=== PATIENT | female | born 1965 | race American Indian/Alaskan Native ===

== ENCOUNTER 2017-06-03 20:20 | Emergency (ER) | payer OTHER ==
--- NOTE | 2017-06-03 21:08 | Emergency Department Report ---
ED Psych HPI - General Chief Complaint: Psych Stated Complaint: MENTAL HEALTH EVALUATION Time Seen by Provider: 06/03/17 20:58 Source: police, EMS Mode of arrival: Stretcher - History of Present Illness Initial Comments: Patient is 51 years old female history of hypertension no previous history of psychiatric problem brought to the ER via EMS for an evaluation of acute agitation and aggressiveness. EMS report patient is throwing stuff in our house breaking things, hospitalized initially with the patient that he left after that. Report from nurses stated that they are questioning possible substance abuse. No history of fever or headache recently. No neck stiffness. MD Complaint: altered mental status -: Sudden Associated Psychiatric Symptoms: visual hallucinations, delusions History of same: No - Related Data Allergies Allergy/AdvReac Type Severity Reaction Status Date / Time No Known Allergies Allergy Unverified 06/03/17 20:48 ED Review of Systems ROS: Stated complaint: MENTAL HEALTH EVALUATION Other details as noted in HPI Comment: All other systems reviewed and negative Constitutional: denies: chills, fever Respiratory: denies: cough, orthopnea, shortness of breath, SOB with exertion Cardiovascular: palpitations. denies: chest pain Gastrointestinal: denies: abdominal pain, nausea, vomiting, diarrhea, constipation Genitourinary: denies: urgency, dysuria, frequency, hematuria Skin: denies: rash Neurological: denies: headache, weakness, numbness, paresthesias, confusion Psychiatric: visual hallucinations ED Past Medical Hx - Past Medical History Previous Medical History?: Yes Hx Hypertension: Yes (?) - Surgical History Past Surgical History?: No - Social History Smoking Status: Unknown if ever smoked Substance Use Type: None ED Physical Exam - General Limitations: No Limitations General appearance: alert, other (patient is very agitated.) - Head Head exam: Present: atraumatic, normocephalic, normal inspection - Eye Eye exam: Present: normal appearance, PERRL Pupils: Present: miosis, other - ENT ENT exam: Present: normal exam, normal orophraynx, mucous membranes moist - Neck Neck exam: Present: normal inspection, full ROM. Absent: tenderness, meningismus, lymphadenopathy, thyromegaly - Respiratory Respiratory exam: Present: normal lung sounds bilaterally. Absent: respiratory distress, wheezes, rales, rhonchi, stridor, chest wall tenderness, accessory muscle use, decreased breath sounds, prolonged expiratory - Cardiovascular Cardiovascular Exam: Present: tachycardia. Absent: systolic murmur, diastolic murmur, rubs, gallop - GI/Abdominal GI/Abdominal exam: Present: soft, normal bowel sounds. Absent: tenderness, guarding, rebound, rigid, organomegaly, mass, bruit, pulsatile mass, hernia - Extremities Exam Extremities exam: Present: normal inspection, full ROM, normal capillary refill. Absent: tenderness, pedal edema, joint swelling, calf tenderness - Back Exam Back exam: Present: full ROM. Absent: CVA tenderness (R), CVA tenderness (L), muscle spasm, paraspinal tenderness, vertebral tenderness - Neurological Exam Neurological exam: Present: alert, altered, CN II-XII intact, normal gait, reflexes normal. Absent: motor sensory deficit - Psychiatric Psychiatric exam: Present: agitated, manic - Skin Skin exam: Present: warm, intact, normal color ED Course Vital Signs 06/03/17 20:42 Temperature 98.2 F Pulse Rate 125 H Respiratory 24 Rate Blood Pressure 144/81 Blood Pressure 144/81 [Left] O2 Sat by Pulse 98 Oximetry Critical care attestation.: If time is entered above; I have spent that time in minutes in the direct care of this critically ill patient, excluding procedure time. ED Disposition Clinical Impression: Acute psychosis Disposition: DC/TX-65 PSY HOSP/PSY UNIT Is pt being admited?: No Condition: Stable Referrals: MOSES SAAVEDRA MD [Primary Care Provider] - 3-5 Days
[2017-06-03 21:17] LABS: Amphetamine Screen,Urine PRESUMPTIVE NEGATIVE; Benzodiazepines Screen,Urine PRESUMPTIVE NEGATIVE; Cocaine Screen,Urine PRESUMPTIVE NEGATIVE; Methadone Screen,Urine PRESUMPTIVE NEGATIVE; Opiate Screen,Urine PRESUMPTIVE NEGATIVE
[2017-06-03 21:30] LABS: Cannabinoid Screen,Urine PRESUMPTIVE POSITIVE
[2017-06-03 21:34] LABS: Bacteria,Urine 1+ /HPF (Negative); Bilirubin,Urine NEG (Negative); Blood,Urine NEG (Negative); Calcium Oxalate Crystals,Urine 1+; Color,Urine Yellow (Yellow); Hyaline Casts,Urine 32 /LPF; Mucus,Urine FEW /HPF; Nitrite,Urine NEG (Negative); Urobilinogen,Urine < 2.0 mg/dL (<2.0)
[2017-06-03 21:37] LABS: Basophils # (Auto) 0.1 K/mm3 (0.0-0.1); Basophils % (Auto) 0.6 % (0.0-1.8); Eosinophils % (Auto) 0.2 % (0.0-4.3); Hematocrit 43.9 % (30.3-42.9); Hemoglobin 15.1 gm/dl (10.1-14.3); Lymphocytes # (Auto) 3.1 K/mm3 (1.2-5.4); Lymphocytes % (Auto) 31.7 % (13.4-35.0); Mean Corpuscular HGB Conc 35 % (30-34); Mean Corpuscular Hemoglobin 36 pg (28-32); Mean Corpuscular Volume 103 fl (79-97); Monocytes # (Auto) 0.7 K/mm3 (0.0-0.8); Monocytes % (Auto) 7.6 % (0.0-7.3); Platelet Count 253 K/mm3 (140-440); Red Blood Count 4.25 M/mm3 (3.65-5.03)
[2017-06-03 21:43] LABS: Calcium 9.1 mg/dL (8.4-10.2)
[2017-06-04] MEDS ORDERED: GEODON IM ONE (01:34)
--- NOTE | 2017-06-05 12:44 | Consultation ---
History of Present Illness - Reason for Consult Consult date: 06/05/17 Reason for consult: Mental Health Evaluation Requesting physician: DAMON HERNANDEZ - Chief Complaint Chief complaint: "I don't know what happened to me" - History of Present Psychiatric Illness Patient is 51 years old female history of hypertension with no previous history of psychiatric problem brought to the ER via EMS for an evaluation of acute agitation and aggressiveness. Today the patient is calm and cooperative during the assessment. She stated that she don't remember much about what happened at her home prior to her admission to the hospital. She was asked about having a mental health dx, she stated, "I saw a psychiatrist before, but I don't remember the conversation." She admitted to smoking marijuana "often." She denies any manic episodes, but admitted to erratic sleep "lately." She denies SI /HI's and AVH's. She denies a poor appetite and excessive alcohol consumption ( etoh). Medications and Allergies Allergies Allergy/AdvReac Type Severity Reaction Status Date / Time No Known Allergies Allergy Unverified 06/03/17 20:48 Home Medications Medication Instructions Recorded Confirmed Last Taken Type No Known Home Medications [No 06/04/17 06/04/17 Unknown History Reported Home Medications] Past psychiatric history - Past Medical History Past Medical History: No medical history Past Surgical History: No surgical history - past Psychiatric treatment and history psychiatric treatment history: She stated see a psychiatrist once (outpatient). Denies a fam psy hx. Mental Status Exam - Vital signs Last Vital Signs Temp 98.6 F 06/04/17 19:05 Pulse 95 H 06/04/17 19:05 Resp 18 06/05/17 11:17 BP 129/80 06/04/17 19:05 Pulse Ox 99 06/05/17 11:17 - Exam Narrative exam: MSE: Appearance: calm, cooperative Behavior: regular eye contact Speech: regular rate and tone Mood: "okay" Affect: congruent to mood Thought Process: circumstantial Thought Content: denies SI/HI's and AVH's Motor Activity: lying in bed Cognition: A/O x3 Insight: variable Judgment: variable Results Result Diagrams: 06/03/17 21:01 06/03/17 21:01 All other labs normal. Assessment and Plan Assessment and plan: Impression: Unspecified Psychosis on admission. Substance Use DO (marijuana). Today the patient is calm and cooperative during the assessment. DDx: R/O Substance Induced psychosis Recommendation/Plan: Continue 1013 and gather collateral information to determine treatment and dispo. Start Trazodone 50 mg HS PRN for sleep consolidation. Discussed possible suicidality/medication induced kat reference Trazodone with patient.
[2017-06-05] MEDS ORDERED: DESYREL PO PRN (12:56)
[2017-06-05 16:17] LABS: Alanine Aminotransferase 14 units/L (7-56); Lipase 10 units/L (13-60)
--- NOTE | 2017-06-06 15:08 | Progress Note ---
Subjective - Reason for Consult Consult date: 06/06/17 Reason for consult: Psychiatry Follow-up - Chief Complaint Chief complaint: "Bronson" Patient is 51 years old female history of hypertension with no previous history of psychiatric problem brought to the ER via EMS for an evaluation of acute agitation and aggressiveness. Today the patient is calm and cooperative during the assessment. She is more lucid today then yesterday when asked questions. She stated that she got a "lot of rest" last night. She denies SI/HI's and AVH' s. She denies any side effects of her medication. Mental Status Exam - Vital signs Last Vital Signs Temp 98.5 F 06/06/17 10:00 Pulse 82 06/06/17 10:00 Resp 18 06/06/17 12:29 BP 111/77 06/06/17 10:00 Pulse Ox 96 06/06/17 12:29 - Exam Narrative exam: MSE: Appearance: calm, cooperative Behavior: regular eye contact Speech: regular rate and tone Mood: "okay" Affect: congruent to mood Thought Process: logical Thought Content: denies SI/HI's and AVH's Motor Activity: lying in bed Cognition: A/O x3 Insight: fair Judgment: fair Assessment and Plan Impression: Unspecified Psychosis on admission. Substance Use DO (marijuana). Today the patient is calm and cooperative during the assessment. DDx: R/O Substance Induced psychosis Recommendation/Plan: Evaluate 1013 in 24 hours to determine proper dispo. Continue Depakote 1000 mg PO HS for mood and Trazodone 50 mg PO HS PRN for sleep consolidation. Discussed possible suicidality/medication induced kat reference Trazodone with patient. Discussed with patient the importance to have her Depakote level monitored one discharged.
--- NOTE | 2017-06-07 18:19 | Progress Note ---
Subjective - Reason for Consult Consult date: 06/07/17 Reason for consult: psychiatric follow-up Requesting physician: DAMON HERNANDEZ - Chief Complaint Chief complaint: "I am fine". Patient is a 51-year-old female, with history of hypertension, and with no previous psychiatric history was brought to the emergency room, for evaluation of acute agitation and aggressiveness. Today the patient did appear more organized in her thought processes was linear. Patient stated that her mood has been "good". Review of her records show the patient was not sleeping for about 2 days, and she did state that her "life was stressful". She might have had a manic episode, or a substance-induced mood episode, since she was positive for THC. Patient however appears to have cleared up and was able to participate appropriately in a conversation. She denied any current suicidal or homicidal ideations and denied any auditory or visual hallucinations. Mental Status Exam - Vital signs Last Vital Signs Temp 98.5 F 06/07/17 09:02 Pulse 80 06/07/17 09:02 Resp 16 06/07/17 09:02 BP 148/85 06/07/17 09:02 Pulse Ox 99 06/07/17 09:02 - Exam Orientation: time, place, person Affect: anxious Mood: congruent with affect Thought content: other (denies suicidal or homicidal ideations or any auditory and visual hallucinations) Thought Process: Intact Perceptions: none Speech: normal rate and pattern Concentration: focused Motor activity: normal Level of consciousness: alert Memory: Recent Impaired Sleep Symptoms: Difficulty Falling Asleep Appetite: increased Interaction: defensive Assessment and Plan Impression: Unspecified mood disorder versus substance-induced psychosis. Plan: Patient's mood appears to be stable at this time. Hence her 1013 can be rescinded and then she can be discharged to go home. Patient is strongly recommended to follow-up in our outpatient clinic, and also be compliant with her medications including Depakote ER 1000 mg at bedtime for mood stabilization and trazodone 50 mg by mouth daily at bedtime when necessary for insomnia. Patient is strongly encouraged to abstain from using cannabis or any other drugs and alcohol.
--- NOTE | 2017-06-09 10:54 | Progress Note ---
Subjective - Reason for Consult Consult date: 06/09/17 Reason for consult: Psychiatry Follow-up - Chief Complaint Chief complaint: "Can I leave today" Patient is a 51-year-old female, with history of hypertension, and with no previous psychiatric history was brought to the emergency room, for evaluation of acute agitation and aggressiveness. Today the patient is calm and cooperative during the assessment. She stated that her priority is staying "mentally stable" once discharged. She stated that she will follow up with [facility] for outpatient psy services. She denies SI/HI's and AVH's. She denies any side effects of her medications. Mental Status Exam - Vital signs Last Vital Signs Temp 98.8 F 06/08/17 20:35 Pulse 78 06/09/17 04:28 Resp 18 06/09/17 04:28 BP 134/82 06/09/17 04:28 Pulse Ox 97 06/09/17 04:28 - Exam Narrative exam: MSE: Appearance: calm, cooperative Behavior: regular eye contact Speech: regular rate and tone Mood: "okay" Affect: congruent to mood Thought Process: logical/linear Thought Content: denies SI/HI's and AVH's Motor Activity: lying in bed Cognition: A/O x3 Insight: appropriate Judgment: appropriate Assessment and Plan Impression: Unspecified Psychosis on admission. Cannabis Use DO. Today the patient is calm and cooperative during the assessment. VA 63.9. DDx: Bipolar DO, R/O Substance Induced psychosis Recommendation/Plan: Rescind 1013. Continue Depakote 1000 mg PO HS for mood and Trazodone 50 mg PO HS PRN for sleep consolidation. Discussed possible suicidality/medication induced kat reference Trazodone with patient. The patient given outpatient psy service for [facility]. Discussed with patient the importance to have her Depakote level monitored and the medication managed at [facility], she agreed.
[2017-06-09 12:01] VITALS: BP 117/74
== END 2017-06-09 12:43 | disposition home or self-care (01) ==
LOC: EEVIPCON 20:20 → ED 20:20
DX: F23 Brief psychotic disorder (principal); I10 Essential (primary) hypertension; Z79.899 Other long term (current) drug therapy
CPT/HCPCS: 36415; 80048; 80164; 80307; 81001; 82150; 83690; 84075; 84450; 84460; 84703; 85025; 93005; 93010; 96372; 99284; G0480; J3486; 80320

== ENCOUNTER 2018-11-26 07:53 | Emergency (ER) | payer OTHER ==
[2018-11-26] MEDS ORDERED: GEODON IM ONE (08:02)
[2018-11-26] MEDS ORDERED: ATIVAN IM ONE (08:03)
[2018-11-26] MEDS ORDERED: WATER FOR INJ Sterile (PF) 10 ML ONE (08:10)
--- NOTE | 2018-11-26 08:13 | Emergency Department Report ---
ED Psych HPI - General Chief Complaint: Psych Stated Complaint: BIPOLAR/MH Time Seen by Provider: 11/26/18 08:02 Source: police Mode of arrival: Ambulatory Limitations: Altered Mental Status - History of Present Illness Initial Comments: 53-year-old female with a past medical history of bipolar disorder presents to the hospital ordered police escort with acute psychosis and combative behavior. Has been notified EMS. Patient was destroying property in her home and was difficult to control. We awaiting has been arrival to the ED for further information. Patient is acutely psychotic to make incomprehensible sounds. She was placed in seclusion room still in handcuffs and attempted to lift a bottle off the floor and swallow it. - Related Data Previous Rx's Medication Instructions Recorded Last Taken Type Divalproex Sodium [Depakote] 1,000 mg PO QHS #28 tablet. 06/09/17 Unknown Rx Allergies Allergy/AdvReac Type Severity Reaction Status Date / Time No Known Allergies Allergy Unverified 06/03/17 20:48 ED Review of Systems ROS: Stated complaint: BIPOLAR/MH Other details as noted in HPI Comment: Unobtainable due to pts medical conditions ED Past Medical Hx - Past Medical History Hx Hypertension: Yes (?) Hx Psychiatric Treatment: Yes (bipolar disorder) - Social History Smoking Status: Unknown if ever smoked Substance Use Type: None - Medications Home Medications: Home Medications Medication Instructions Recorded Confirmed Last Taken Type Divalproex Sodium [Depakote] 1,000 mg PO QHS #28 tablet. 06/09/17 11/26/18 Unknown Rx ED Physical Exam - General Limitations: Altered Mental Status - Other Other exam information: General: Agitated Head exam: Atraumatic, normocephalic Eyes exam: Normal appearance ENT: Moist mucous membrane Neck exam: Normal inspection, full range of motion, no meningismus nontender Respiratory exam: Clear to auscultation bilateral, no wheezes, rales, crackles Cardiovascular: Tachycardic Abdomen: Soft, nondistended, and nontender, with normal bowel sounds, no rebound, or guarding Extremity: Full range of motion normal inspection no deformity Back: Normal Inspection, full range of motion, no tenderness Neurologic: Alert, grossly intact sensation with 5/5 upper and lower extremity strength. The gait. Psychiatric: Acutely psychotic, agitated Skin: Upper torso is wet from diaphoresis versus water exposure prior to arrival. Patient was found in the bathroom prior to transport. She expressed to police justice that she is going to menopausal ED Course Vital Signs 11/26/18 11/26/18 11/26/18 10:35 12:05 15:24 Temperature 96.6 F L 98.3 F Pulse Rate 101 H 102 H Respiratory 16 18 16 Rate Blood Pressure 143/80 125/82 [Left] O2 Sat by Pulse 96 95 Oximetry 11/26/18 11/26/18 11/27/18 19:00 20:00 01:00 Temperature 98.6 F 98.7 F Pulse Rate 111 H 85 Respiratory 18 18 18 Rate Blood Pressure 125/78 120/80 [Left] O2 Sat by Pulse 95 95 98 Oximetry 11/27/18 11/27/18 11/27/18 07:00 14:32 19:30 Temperature 98.4 F 98.4 F 98.7 F Pulse Rate 106 H 99 H 89 Respiratory 18 18 Rate Blood Pressure 107/81 126/78 121/78 [Left] O2 Sat by Pulse 96 96 97 Oximetry 11/28/18 11/28/18 01:40 09:15 Temperature 98.6 F 98.1 F Pulse Rate 84 85 Respiratory 20 16 Rate Blood Pressure 142/90 120/74 [Left] O2 Sat by Pulse 97 98 Oximetry - Reevaluation(s) Reevaluation #1: 11/26/18 15:20 pt required geodon and and ativan upon arrival due to uncontrollable behavior. Urine collection is still pending at this point Mental health evaluation requested and patient is currently on a 1013 ED Medical Decision Making - Lab Data Result diagrams: 11/26/18 10:41 11/26/18 10:41 Lab Results 11/26/18 11/26/18 11/26/18 Range/Units 08:10 10:41 10:41 WBC 7.1 (4.5-11.0) K/mm3 RBC 4.38 (3.65-5.03) M/mm3 Hgb 16.2 H (10.1-14.3) gm/dl Hct 45.4 H (30.3-42.9) % MCV 104 H (79-97) fl MCH 37 H (28-32) pg MCHC 36 H (30-34) % RDW 14.8 (13.2-15.2) % Plt Count 222 (140-440) K/mm3 Lymph % (Auto) 23.4 (13.4-35.0) % [place] % (Auto) 5.4 (0.0-7.3) % Eos % (Auto) 0.6 (0.0-4.3) % Baso % (Auto) 1.0 (0.0-1.8) % Lymph # 1.7 (1.2-5.4) K/mm3 [place] # 0.4 (0.0-0.8) K/mm3 Eos # 0.0 (0.0-0.4) K/mm3 Baso # 0.1 (0.0-0.1) K/mm3 Seg Neutrophils % 69.6 (40.0-70.0) % Seg Neutrophils # 4.9 (1.8-7.7) K/mm3 Sodium 141 (137-145) mmol/L Potassium 4.3 (3.6-5.0) mmol/L Chloride 105.5 (98-107) mmol/L Carbon Dioxide 21 L (22-30) mmol/L Anion Gap 19 mmol/L BUN 10 (7-17) mg/dL Creatinine 1.1 (0.7-1.2) mg/dL Estimated GFR > 60 ml/min BUN/Creatinine Ratio 9 % Glucose 93 (65-100) mg/dL POC Glucose 123 H (70-105) Calcium 9.7 (8.4-10.2) mg/dL AST (5-40) units/L ALT (7-56) units/L Alkaline Phosphatase (35-129) units/L Amylase (27-131) units/L Lipase (13-60) units/L HCG, Qual (Negative) Urine Color (Yellow) Urine Turbidity (Clear) Urine pH (5.0-7.0) Ur Specific [place] (1.003-1.030) Urine Protein (Negative) mg/dL Urine Glucose (UA) (Negative) mg/dL Urine Ketones (Negative) mg/dL Urine Blood (Negative) Urine Nitrite (Negative) Urine Bilirubin (Negative) Urine Urobilinogen (<2.0) mg/dL Ur Leukocyte Esterase (Negative) Urine WBC (Auto) (0.0-6.0) /HPF Urine RBC (Auto) (0.0-6.0) /HPF U Epithel Cells (Auto) (0-13.0) /HPF Urine Mucus /HPF Salicylates (2.8-20.0) mg/dL Urine Opiates Screen Urine Methadone Screen Acetaminophen (10.0-30.0) ug/mL Ur Barbiturates Screen Valproic Acid (50-100) ug/mL Ur Phencyclidine Scrn Ur Amphetamines Screen U Benzodiazepines Scrn Urine Cocaine Screen U Marijuana (THC) Screen Drugs of Abuse Note Plasma/Serum Alcohol (0-0.07) % 11/26/18 11/26/18 11/26/18 Range/Units 10:41 10:41 10:41 WBC (4.5-11.0) K/mm3 RBC (3.65-5.03) M/mm3 Hgb (10.1-14.3) gm/dl Hct (30.3-42.9) % MCV (79-97) fl MCH (28-32) pg MCHC (30-34) % RDW (13.2-15.2) % Plt Count (140-440) K/mm3 Lymph % (Auto) (13.4-35.0) % [place] % (Auto) (0.0-7.3) % Eos % (Auto) (0.0-4.3) % Baso % (Auto) (0.0-1.8) % Lymph # (1.2-5.4) K/mm3 [place] # (0.0-0.8) K/mm3 Eos # (0.0-0.4) K/mm3 Baso # (0.0-0.1) K/mm3 Seg Neutrophils % (40.0-70.0) % Seg Neutrophils # (1.8-7.7) K/mm3 Sodium (137-145) mmol/L Potassium (3.6-5.0) mmol/L Chloride (98-107) mmol/L Carbon Dioxide (22-30) mmol/L Anion Gap mmol/L BUN (7-17) mg/dL Creatinine (0.7-1.2) mg/dL Estimated GFR ml/min BUN/Creatinine Ratio % Glucose (65-100) mg/dL POC Glucose (70-105) Calcium (8.4-10.2) mg/dL AST (5-40) units/L ALT (7-56) units/L Alkaline Phosphatase (35-129) units/L Amylase (27-131) units/L Lipase (13-60) units/L HCG, Qual (Negative) Urine Color (Yellow) Urine Turbidity (Clear) Urine pH (5.0-7.0) Ur Specific [place] (1.003-1.030) Urine Protein (Negative) mg/dL Urine Glucose (UA) (Negative) mg/dL Urine Ketones (Negative) mg/dL Urine Blood (Negative) Urine Nitrite (Negative) Urine Bilirubin (Negative) Urine Urobilinogen (<2.0) mg/dL Ur Leukocyte Esterase (Negative) Urine WBC (Auto) (0.0-6.0) /HPF Urine RBC (Auto) (0.0-6.0) /HPF U Epithel Cells (Auto) (0-13.0) /HPF Urine Mucus /HPF Salicylates < 0.3 L (2.8-20.0) mg/dL Urine Opiates Screen Urine Methadone Screen Acetaminophen < 5.0 L (10.0-30.0) ug/mL Ur Barbiturates Screen Valproic Acid (50-100) ug/mL Ur Phencyclidine Scrn Ur Amphetamines Screen U Benzodiazepines Scrn Urine Cocaine Screen U Marijuana (THC) Screen Drugs of Abuse Note Plasma/Serum Alcohol < 0.01 (0-0.07) % 11/26/18 11/26/18 11/26/18 Range/Units 10:41 10:41 19:05 WBC (4.5-11.0) K/mm3 RBC (3.65-5.03) M/mm3 Hgb (10.1-14.3) gm/dl Hct (30.3-42.9) % MCV (79-97) fl MCH (28-32) pg MCHC (30-34) % RDW (13.2-15.2) % Plt Count (140-440) K/mm3 Lymph % (Auto) (13.4-35.0) % [place] % (Auto) (0.0-7.3) % Eos % (Auto) (0.0-4.3) % Baso % (Auto) (0.0-1.8) % Lymph # (1.2-5.4) K/mm3 [place] # (0.0-0.8) K/mm3 Eos # (0.0-0.4) K/mm3 Baso # (0.0-0.1) K/mm3 Seg Neutrophils % (40.0-70.0) % Seg Neutrophils # (1.8-7.7) K/mm3 Sodium (137-145) mmol/L Potassium (3.6-5.0) mmol/L Chloride (98-107) mmol/L Carbon Dioxide (22-30) mmol/L Anion Gap mmol/L BUN (7-17) mg/dL Creatinine (0.7-1.2) mg/dL Estimated GFR ml/min BUN/Creatinine Ratio % Glucose (65-100) mg/dL POC Glucose (70-105) Calcium (8.4-10.2) mg/dL AST 30 (5-40) units/L ALT 19 (7-56) units/L Alkaline Phosphatase 73 (35-129) units/L Amylase 80 (27-131) units/L Lipase 6 L (13-60) units/L HCG, Qual Negative (Negative) Urine Color Yellow (Yellow) Urine Turbidity Slightly-cloudy (Clear) Urine pH 5.0 (5.0-7.0) Ur Specific [place] 1.016 (1.003-1.030) Urine Protein 30 mg/dl (Negative) mg/dL Urine Glucose (UA) Neg (Negative) mg/dL Urine Ketones Tr (Negative) mg/dL Urine Blood Neg (Negative) Urine Nitrite Neg (Negative) Urine Bilirubin Neg (Negative) Urine Urobilinogen < 2.0 (<2.0) mg/dL Ur Leukocyte Esterase Neg (Negative) Urine WBC (Auto) < 1.0 (0.0-6.0) /HPF Urine RBC (Auto) 2.0 (0.0-6.0) /HPF U Epithel Cells (Auto) 2.0 (0-13.0) /HPF Urine Mucus Few /HPF Salicylates (2.8-20.0) mg/dL Urine Opiates Screen Urine Methadone Screen Acetaminophen (10.0-30.0) ug/mL Ur Barbiturates Screen Valproic Acid (50-100) ug/mL Ur Phencyclidine Scrn Ur Amphetamines Screen U Benzodiazepines Scrn Urine Cocaine Screen U Marijuana (THC) Screen Drugs of Abuse Note Plasma/Serum Alcohol (0-0.07) % 11/26/18 11/26/18 Range/Units 19:05 Unknown WBC (4.5-11.0) K/mm3 RBC (3.65-5.03) M/mm3 Hgb (10.1-14.3) gm/dl Hct (30.3-42.9) % MCV (79-97) fl MCH (28-32) pg MCHC (30-34) % RDW (13.2-15.2) % Plt Count (140-440) K/mm3 Lymph % (Auto) (13.4-35.0) % [place] % (Auto) (0.0-7.3) % Eos % (Auto) (0.0-4.3) % Baso % (Auto) (0.0-1.8) % Lymph # (1.2-5.4) K/mm3 [place] # (0.0-0.8) K/mm3 Eos # (0.0-0.4) K/mm3 Baso # (0.0-0.1) K/mm3 Seg Neutrophils % (40.0-70.0) % Seg Neutrophils # (1.8-7.7) K/mm3 Sodium (137-145) mmol/L Potassium (3.6-5.0) mmol/L Chloride (98-107) mmol/L Carbon Dioxide (22-30) mmol/L Anion Gap mmol/L BUN (7-17) mg/dL Creatinine (0.7-1.2) mg/dL Estimated GFR ml/min BUN/Creatinine Ratio % Glucose (65-100) mg/dL POC Glucose (70-105) Calcium (8.4-10.2) mg/dL AST (5-40) units/L ALT (7-56) units/L Alkaline Phosphatase (35-129) units/L Amylase (27-131) units/L Lipase (13-60) units/L HCG, Qual (Negative) Urine Color (Yellow) Urine Turbidity (Clear) Urine pH (5.0-7.0) Ur Specific [place] (1.003-1.030) Urine Protein (Negative) mg/dL Urine Glucose (UA) (Negative) mg/dL Urine Ketones (Negative) mg/dL Urine Blood (Negative) Urine Nitrite (Negative) Urine Bilirubin (Negative) Urine Urobilinogen (<2.0) mg/dL Ur Leukocyte Esterase (Negative) Urine WBC (Auto) (0.0-6.0) /HPF Urine RBC (Auto) (0.0-6.0) /HPF U Epithel Cells (Auto) (0-13.0) /HPF Urine Mucus /HPF Salicylates (2.8-20.0) mg/dL Urine Opiates Screen Presumptive negative Urine Methadone Screen Presumptive negative Acetaminophen (10.0-30.0) ug/mL Ur Barbiturates Screen Presumptive negative Valproic Acid < 2.8 L (50-100) ug/mL Ur Phencyclidine Scrn Presumptive negative Ur Amphetamines Screen Presumptive negative U Benzodiazepines Scrn Presumptive negative Urine Cocaine Screen Presumptive negative U Marijuana (THC) Screen Presumptive negative Drugs of Abuse Note Disclamer Plasma/Serum Alcohol (0-0.07) % - Medical Decision Making medically cleared for psych admission - Differential Diagnosis bipolar, psychosis, drug abuse, noncompliance Critical Care Time: No Critical care attestation.: If time is entered above; I have spent that time in minutes in the direct care of this critically ill patient, excluding procedure time. ED Disposition Clinical Impression: Acute psychosis, Combative behavior, Bipolar disorder, Medical clearance for psychiatric admission Disposition: DC/TX-65 PSY HOSP/PSY UNIT Is pt being admited?: No Condition: Stable Time of Disposition: 16:00
[2018-11-26 10:54] LABS: Basophils # (Auto) 0.1 K/mm3 (0.0-0.1); Eosinophils % (Auto) 0.6 % (0.0-4.3); Lymphocytes # (Auto) 1.7 K/mm3 (1.2-5.4); Lymphocytes % (Auto) 23.4 % (13.4-35.0); Mean Corpuscular HGB Conc 36 % (30-34); Mean Corpuscular Volume 104 fl (79-97); Monocytes # (Auto) 0.4 K/mm3 (0.0-0.8); Monocytes % (Auto) 5.4 % (0.0-7.3); Platelet Count 222 K/mm3 (140-440); Red Blood Count 4.38 M/mm3 (3.65-5.03); Red Cell Distribution Width 14.8 % (13.2-15.2)
[2018-11-26 11:11] LABS: Hematocrit 45.4 % (30.3-42.9); Hemoglobin 16.2 gm/dl (10.1-14.3)
[2018-11-26 11:26] LABS: BUN/Creatinine Ratio 9; Blood Urea Nitrogen 10 mg/dL (7-17); Calcium 9.7 mg/dL (8.4-10.2); Hemolysis Index 41
--- NOTE | 2018-11-26 12:19 | Consultation ---
History of Present Illness - Reason for Consult Consult date: 11/26/18 Reason for consult: Mental Health Evaluation Requesting physician: ZOE COX - Chief Complaint Chief complaint: "I know why I'm here" - History of Present Psychiatric Illness 53 y.o. AA female who presented to the ER for bizarre behavior. This patient is known to me. Today the patient was agitated during the assessment. She had to be interviewed in the seclusion room. She could not answer any questions logically without being redirected. Overall, the patient a poor historian at this time. No gestures of SI/HI's. Medications and Allergies Allergies Allergy/AdvReac Type Severity Reaction Status Date / Time No Known Allergies Allergy Unverified 06/03/17 20:48 Home Medications Medication Instructions Recorded Confirmed Last Taken Type Divalproex Sodium [Depakote] 1,000 mg PO QHS #28 tablet. 06/09/17 11/26/18 Unknown Rx Past psychiatric history - Past Medical History Past Medical History: other (unable to obtain) Past Surgical History: Other (unable to obtain ) - past Psychiatric treatment and history psychiatric treatment history: Hx of Mood DO. Unable to to obtain a fam psy hx. - Social History Social history: lives with family Mental Status Exam - Vital signs Last Vital Signs Temp 96.6 F L 11/26/18 10:35 Pulse 101 H 11/26/18 10:35 Resp 16 11/26/18 10:35 BP 143/80 11/26/18 10:35 Pulse Ox - Exam Narrative exam: MSE: Appearance: disheveled Behavior: regular eye contact Speech: regular rate and tone Mood: labile Affect: congruent to mood Thought Process: disorganized, loose associations Thought Content: no gestures of SI/HI's Motor Activity: lying in bed Cognition: alert Insight: poor Judgment: poor Results Result Diagrams: 11/26/18 10:41 11/26/18 10:41 Abnormal lab results 11/26/18 11/26/18 11/26/18 Range/Units 08:10 10:41 10:41 Hgb 16.2 H (10.1-14.3) gm/dl Hct 45.4 H (30.3-42.9) % MCV 104 H (79-97) fl MCH 37 H (28-32) pg MCHC 36 H (30-34) % Carbon Dioxide 21 L (22-30) mmol/L POC Glucose 123 H (70-105) Salicylates (2.8-20.0) mg/dL 11/26/18 Range/Units 10:41 Hgb (10.1-14.3) gm/dl Hct (30.3-42.9) % MCV (79-97) fl MCH (28-32) pg MCHC (30-34) % Carbon Dioxide (22-30) mmol/L POC Glucose (70-105) Salicylates < 0.3 L (2.8-20.0) mg/dL All other labs normal. Assessment and Plan Assessment and plan: Impression: Unspecified Psychosis. Today the patient was agitated during the assessment. UDS/UA pending. Recommendation/Plan: Continue 1013 and attempt to reassess the patient in 24 hours. Start Haldol 5 mg IM Q6hrs PRN for acute psychosis and Buspar 7.5 mg PO BID for anxiety. Dispo: Once the patient's psy assessment is completed proper dispo will be determined. Staffed with Dr Stoney Mariscal.
[2018-11-26 13:36] LABS: Alanine Aminotransferase 19 units/L (7-56)
[2018-11-26] MEDS ORDERED: HALDOL IM PRN (14:24)
[2018-11-26] MEDS: BUSPAR PO SCH ×2 (19:25→23:17)
[2018-11-26 19:41] LABS: Bilirubin,Urine NEG (Negative); Blood,Urine NEG (Negative); Color,Urine Yellow (Yellow); Mucus,Urine FEW /HPF; Urobilinogen,Urine < 2.0 mg/dL (<2.0); WBC,Urine < 1.0 /HPF (0.0-6.0)
[2018-11-26 19:48] LABS: Amphetamine Screen,Urine PRESUMPTIVE NEGATIVE; Benzodiazepines Screen,Urine PRESUMPTIVE NEGATIVE; Cannabinoid Screen,Urine PRESUMPTIVE NEGATIVE; Cocaine Screen,Urine PRESUMPTIVE NEGATIVE; Methadone Screen,Urine PRESUMPTIVE NEGATIVE; Opiate Screen,Urine PRESUMPTIVE NEGATIVE
--- NOTE | 2018-11-27 09:52 | Progress Note ---
Subjective - Reason for Consult Consult date: 11/27/18 Reason for consult: Psychiatry Follow-up - Chief Complaint Chief complaint: "I haven't slept in days" 53 y.o. AA female who presented to the ER for bizarre behavior. This patient is known to me. Today the patient was calm, but somewhat disorganized during the assessment. She stated that she haven;t slept in 4 days, but cannot explain why. She stated that she was hearing music in her ear for the past 2 days, She would not confirm or deny AH's when asked. the patient had to be redirected several times to keep her on topic. Per the notes, no behavioral disturbances overnight. She denies SI/Hi's and VH's. Per the records, the patient was ordered Depakote on her last admission to the hospital. Mental Status Exam - Vital signs Last Vital Signs Temp 98.4 F 11/27/18 07:00 Pulse 106 H 11/27/18 07:00 Resp 18 11/27/18 07:00 BP 107/81 11/27/18 07:00 Pulse Ox 96 11/27/18 07:00 - Exam Narrative exam: MSE: Appearance: disheveled Behavior: regular eye contact Speech: regular rate and tone Mood: labile Affect: congruent to mood Thought Process: disorganized Thought Content: denies SI/HI's and VH's Motor Activity: ambulatory Cognition: A/O x3 Insight: poor Judgment: variable Assessment and Plan Impression: Unspecified Psychosis. Today the patient was labile during the assessment. UDS is negative. DDx: Bipolar DO with psychosis Recommendation/Plan: Continue 1013. Start Depakote 500 mg PO BID for mood, Zyprexa 5 mg PO HS for psychosis/mood, and Buspar 7.5 mg PO BID for anxiety. Dispo: The patient was referred to inpatient psy services. Staffed with Dr Stoney Mariscal.
[2018-11-27] MEDS: BUSPAR PO SCH ×2 (11:28→22:10)
[2018-11-27] MEDS ORDERED: ATIVAN PO ONE (13:58)
[2018-11-27] MEDS ORDERED: TYLENOL PO ONE (22:24)
[2018-11-28] MEDS: BUSPAR PO SCH ×2 (10:51→22:23)
--- NOTE | 2018-11-28 13:33 | Progress Note ---
Subjective - Reason for Consult Consult date: 11/28/18 Reason for consult: Psychiatric Follow-up Evaluation - Chief Complaint Chief complaint: "I'm resting well." Patient is a 53 y.o. AA female who presented to the ER for bizarre behavior. Today the patient is calm and less disorganized during the assessment. Patient is suspicious of provider. At times irritable with provider. She reports fair sleep and appetite. She verbalizes " yesterday I had crying spells and was depressed. I've heard music/tones." She denies SI/HI's, VH's, and delusions. Reports intermittent AH's of music and tones. She reports medication compliance. No side effects noted/reported. Mental Status Exam - Vital signs Last Vital Signs Temp 98.1 F 11/28/18 09:15 Pulse 85 11/28/18 09:15 Resp 16 11/28/18 09:15 BP 120/74 11/28/18 09:15 Pulse Ox 98 11/28/18 09:15 - Exam Narrative exam: Mental Status Exam Appearance: disheveled-less; hospital attire Behavior: regular eye contact Speech: regular rate and tone Mood: labile ; " I'm resting well" Affect: congruent to mood Thought Process: disorganized Thought Content: denies SI/HI's and VH's; + AH's and delusions Motor Activity: ambulatory Cognition: A/O x 3 Insight: poor Judgment: variable Assessment and Plan Impression: Unspecified Psychosis. Today the patient is calm and less disorganized during the assessment. Mood continues to be labile/irritable. UDS is negative. Patient reports that she is unable to afford expensive medication. DDx: Bipolar DO with psychosis Recommendation/Plan: 1. Continue 1013. 2. Continue Depakote 500 mg PO BID for mood and Buspar 7.5 mg PO BID for anxiety. 3. Discontinue Zyprexa 5 mg PO HS for psychosis/mood- due to escobar patient unable to afford medication. 4. Start Risperdal 1mg po BID mood/psychosis. Discussed metabolic side effects. Patient verbalizes full understanding. Disposition: The patient was referred to inpatient psychiatric services. Will staff with Dr. Stoney Mariscal.
[2018-11-28] MEDS: RisperDAL PO SCH (22:23)
[2018-11-29] MEDS: BUSPAR PO SCH ×2 (11:00→21:49)
[2018-11-29] MEDS: RisperDAL PO SCH ×2 (11:00→21:50)
--- NOTE | 2018-11-29 11:25 | Progress Note ---
Subjective - Reason for Consult Consult date: 11/29/18 Reason for consult: Psychiatric Follow-up Evaluation - Chief Complaint Chief complaint: "I feel better." Patient is a 53 y.o. AA female who presented to the ER for bizarre behavior. Today the patient is calm and cooperative during the assessment. She states " I miss my . Lately, I haven't heard any music." Today the patient presents with less paranoid delusions and internally preoccupied. Thoughts are more organized. She reports appropriate sleep and appetite. She denies SI/HI's, A/VH's, and delusions. Patient is compliant with medication. No side effects noted/reported. Mental Status Exam - Vital signs Last Vital Signs Temp 97.9 F 11/29/18 09:40 Pulse 97 H 11/29/18 09:40 Resp 18 11/29/18 09:40 BP 138/69 11/29/18 09:40 Pulse Ox 97 11/29/18 09:40 - Exam Narrative exam: Mental Status Exam Appearance: calm, cooperative Behavior: regular eye contact Speech: regular rate and tone Mood:" I feel better" Affect: congruent to mood Thought Process: more organized Thought Content: denies SI/HI's, A/VH's, and delusions Motor Activity: ambulatory Cognition: A/O x 3 Insight: variable Judgment: variable Assessment and Plan Impression: Unspecified Psychosis. Today the patient is calm and cooperative during the assessment. Thought process is more organized. She denies SI/HI's, A/VH's, and delusions. DDx: Bipolar DO with psychosis Recommendation/Plan: 1. Continue 1013. Will re-evaluate 1013 in 24 hours. 2. Continue Risperdal 1mg po BID mood/psychosis, Depakote 500 mg PO BID for mood and Buspar 7.5 mg PO BID for anxiety. Discussed metabolic side effects. Patient verbalizes full understanding. Disposition: The patient was referred to inpatient psychiatric services. Will staff with Dr. Stoney Mariscal.
--- NOTE | 2018-11-30 08:42 | Progress Note ---
Subjective - Reason for Consult Consult date: 11/30/18 Reason for consult: Psychiatry Follow-up - Chief Complaint Chief complaint: "I feel better today" 53 y.o. AA female who presented to the ER for bizarre behavior. Today the patient is calm and cooperative during the assessment. She was more organized today during the interview. She denies any music noises in her ear when asked. She denies SI/HI's and AVH's. She denies any side effects of her medication. Mental Status Exam - Vital signs Last Vital Signs Temp 98.3 F 11/29/18 19:49 Pulse 87 11/29/18 19:49 Resp 18 11/29/18 19:49 BP 144/83 11/29/18 19:49 Pulse Ox 98 11/29/18 19:49 - Exam Narrative exam: MSE: Appearance: calm, cooperative Behavior: regular eye contact Speech: regular rate and tone Mood: "okay" Affect: congruent to mood Thought Process: more organized Thought Content: denies SI/HI's and AVH's Motor Activity: ambulatory Cognition: A/O x3 Insight: fair Judgment: fair Assessment and Plan Impression: Unspecified Psychosis. Today the patient was calm and cooperative during the assessment. UDS is negative. The patient's psychosis has resolved. The patient is at her baseline. DDx: Bipolar DO with psychosis Recommendation/Plan: Rescind 1013. Continue Depakote 500 mg PO BID for mood, Risperdal 1 mg PO BID for mood/psychosis. and Buspar 7.5 mg PO BID for anxiety. Discussed possible metabolic side effects of Risperdal with the patient. Dispo: The patient can follow up with [facility] for outpatient psy services. Will staff with Dr Stoney Mariscal.
[2018-11-30] MEDS: BUSPAR PO SCH (10:50)
[2018-11-30] MEDS: RisperDAL PO SCH (10:50)
[2018-11-30] MEDS ORDERED: IBUPROFEN PO ONE (10:51)
[2018-11-30 11:53] VITALS: BP 144/97
== END 2018-11-30 16:35 | disposition home or self-care (01) ==
LOC: ED 07:53 → EEVIPCON 07:53 → ED 11-30 16:35
DX: R46.1 Bizarre personal appearance (principal); F31.9 Bipolar disorder, unspecified; Z79.899 Other long term (current) drug therapy
CPT/HCPCS: 36415; 80048; 80164; 80307; 81001; 82150; 82962; 83690; 84075; 84450; 84460; 84703; 85025; 96372; 99285; J2060; J3486; 80320; G0480